=== PATIENT | female | born 1965 | race Caucasian/White ===

== ENCOUNTER 2019-01-11 12:30 | Emergency (ER) | payer BC ==
[2019-01-11] MEDS ORDERED: Ondansetron PF 4 MG/2 ML Vial ONE (13:15)
[2019-01-11] MEDS ORDERED: diphenhydrAMINE 50 MG/ML VIAL ONE ×2 (13:40→14:56)
[2019-01-11] MEDS ORDERED: Promethazine HCl 25 MG/ML VIAL ONE ×2 (13:40→14:56)
--- NOTE | 2019-01-11 14:21 | CT ---
CT HEAD NONCONTRAST: Indication: Headache. Comparison: None. 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 There is no acute intracranial hemorrhage, mass effect, or midline shift. IMPRESSION: No acute intracranial hemorrhage or mass effect. Pineal cyst, incompletely assessed. Recommend follow up pre and post contrast brain MRI to further as sess. Code T POS: HARDIK
[2019-01-11] MEDS ORDERED: Magnesium 2 GM/50 ML BAG (IN WATER) ONE (14:56)
[2019-01-11] MEDS ORDERED: Ketorolac Tromethamine 30 MG/ML VIAL ONE (14:56)
[2019-01-11] MEDS ORDERED: methylPREDNISolone Sod Succ/PF 125 MG/2 ML VIAL ONE (14:56)
== END 2019-01-11 16:57 | disposition home or self-care (01) ==
LOC: ERS 12:30
DX: G43.909 Migraine, unspecified, not intractable, without status migrainosus (principal)
CPT/HCPCS: 70450; 96361; 96365; 96367; 96368; 96375; 96376; J1200; J1885; J2405; J2550; J2930; J3475

== ENCOUNTER 2019-01-17 10:32 | Outpatient (CLI) | payer BC ==
[~2019-01-17 10:32] MED LIST: Gadobenate Dimeglumine 529 MG/1 ML (20ML VIAL) ONE
--- NOTE | 2019-01-17 13:42 | MRI ---
MRI BRAIN WITH AND WITHOUT CONTRAST: COMPARISON: Head CT 01/11/2019. INDICATION: Cerebral cyst with a history of headache. FINDINGS: Ventricular system is normal in size. There is minimal chronic ischemic disease of the cerebral whit e matter. No hemorrhagic susceptibility. No acute territorial infarction, intraaxial mass effect, o r midline shift. A 1 cm pineal cyst is demonstrated without suspicious nodular enhancement. The cys t demonstrates thin peripheral wall enhancement. There is mild asymmetric prominence of CSF signal w ithin a sulcus of the left parietooccipital region. This likely relates to a mild focal area of pare nchymal volume loss. Skull base flow voids are patent. There is minimal mucosal prominence of the p aranasal sinuses. IMPRESSION: Approximately 1 cm pineal cyst with thin rim enhancement. As a conservative measure, a 1-year follow up exam is recommended. POS: HARDIK
== END 2019-01-17 10:33 | disposition home or self-care (01) ==
LOC: TBSIIMAG 10:32
PROVIDERS: ATTEND Neurological Surgery
DX: G93.0 Cerebral cysts (principal)
CPT/HCPCS: 70553; A9577

== ENCOUNTER 2021-10-18 10:16 | Outpatient (CLI) | payer BC | END 2021-10-18 10:17 | disposition home or self-care (01) | LOC: BICMAMMO 10:16 | PROVIDERS: ATTEND Obstetrics & Gynecology | DX: Z12.31 Encounter for screening mammogram for malignant neoplasm of breast (principal); Z98.82 Breast implant status | CPT/HCPCS: 77063; 77067 ==

== ENCOUNTER 2023-01-05 10:53 | Outpatient (CLI) | payer BC | END 2023-01-05 10:54 | disposition home or self-care (01) | LOC: BICMAMMO 10:53 | PROVIDERS: ATTEND Obstetrics & Gynecology | DX: Z12.31 Encounter for screening mammogram for malignant neoplasm of breast (principal); Z98.82 Breast implant status; Z98.890 Other specified postprocedural states | CPT/HCPCS: 77063; 77067 ==

== ENCOUNTER 2025-10-02 11:18 | Outpatient (CLI) | payer BC | END 2025-10-02 11:19 | disposition home or self-care (01) | LOC: BICMAMMO 11:18 | PROVIDERS: ATTEND Obstetrics & Gynecology | DX: Z78.0 Asymptomatic menopausal state (principal); M85.89 Other specified disorders of bone density and structure, multiple sites | CPT/HCPCS: 77080 ==